=== PATIENT | male | born 1985 | race Caucasian/White ===

== ENCOUNTER → 2016-05-25 | Day surgery (SDC) | payer BC ==
[~2016-05-25] MED LIST: BACT PO; BUPIVACAINE/EPINEPHRINE 0.5% 50 ML VIAL ONE; CEPH500C3 PO; CLINDAMYCIN PHOS 600 MG/4 ML VIAL ONE; KETOROLAC TROMETHAMINE 30 MG/ML (IVP) VIAL IV PUSH ONE; LACTATED RINGER'S 1000 ML INJ 1,000 ML ONE; MIDAZOLAM HCL 2 MG/2 ML VIAL ONE; ONDANSETRON HCL 4 MG/2 ML VIAL IV PUSH ONE; PROPOFOL 100 MG/10 ML INJ IV ONE
--- NOTE | 2016-05-26 09:19 | MP ---
cc: ADELAIDA LEONARD M.D. DATE OF SURGERY 05/25/2016 PREOPERATIVE DIAGNOSIS Right knee medial meniscus tear. POSTOPERATIVE DIAGNOSIS Right knee medial meniscus tear and lateral meniscus tear PROCEDURE Right knee arthroscopic partial medial and partial lateral meniscectomy. ANESTHESIA General SURGEON Adelaida Leonard MD DYE LINE OPERATOR SURGEON BÁRBARA Anthony ESTIMATED BLOOD LOSS Minimal DRAINS None SPECIMEN Fragments discarded. COMPLICATIONS None known. TOURNIQUET TIME None INDICATION Chai Nichole is a 30-year-old male who sustained a significant injury to his right knee and has had persistent symptomatology. MRI scan reveals significant medial tear. He is indicated for surgical intervention. The risks and benefits thoroughly discussed and a detailed informed consent was obtained. PROCEDURE The patient was brought into the operating room. He was placed under general anesthetic. The right lower extremity was draped and prepped in the usual sterile fashion. IV antibiotics were given. Time-out was completed. It should be noted that the producer assistant, Eric Galloway, is an advanced registered nurse practitioner and his skill set was medically necessary for the performance of the operation. He assisted by holding the limb in various angles and holding the arthroscope to facilitate the operation. His skill set was mandated and the support services tech on the back table did not have the skill to assist in this fashion. PROCEDURE After time-out was completed, we proceeded with Joselito about the inferolateral portal. A portal made. A blunt trocar used to use introduce the cannula. A small effusion was noted. The patellofemoral joint appeared normal. Notch showed some mild laxity to the ACL, but intact. The lateral aspect of the lateral meniscus was intact, but at the root of the lateral meniscus, there was a radial tear involving 30% of the depth of the meniscus. We proceeded with holding the knee in the figure four an additionally placing stress and performing a partial lateral meniscectomy using a combination of basket forceps and arthroscopic shaver. We took a follow-up photograph here and then moved to the medial compartment where we found a very large tear involving 80% the depth of the posterior horn of the medial meniscus. We proceeded with arthroscopic partial medial meniscectomy using a combination of basket forceps and arthroscopic shaver. We switch over a switching stick and fine-tuned both the medial and lateral side. After this was completed we switched back to the lateral portal and repeated a repeat diagnostic arthroscopy, confirmed no loose bodies. The arthroscopic equipment was removed. Marcaine injected and we proceeded to close with Steri-Strips. A sterile dressing applied. Luke wrap applied. The patient was awoken and returned to the recovery room in stable condition. MD EULALIO Montero/KAREN /2:03 PM /9:14 AM
== END | disposition home or self-care (01) ==
LOC: ESDC 10:50
PROVIDERS: ATTEND Orthopaedic Surgery Sports Medicine
DX: S83.241A Other tear of medial meniscus, current injury, right knee, initial encounter (principal); S83.281A Other tear of lateral meniscus, current injury, right knee, initial encounter
CPT/HCPCS: 01400; 29880; J1885; J2250; J2405; J3010; J7120